=== PATIENT | female | born 1960 | race Caucasian/White ===

== ENCOUNTER 2019-06-09 20:48 | Emergency (ER) | payer BC ==
[2019-06-09] MEDS ORDERED: Ibuprofen 600 MG Tab PO ONE (21:10)
--- NOTE | 2019-06-09 21:10 | EDM.PDOC ---
ED HPI GENERAL MEDICAL PROBLEM - General Chief Complaint: Upper Extremity Injury/Pain Stated Complaint: SLIPPED ON KITCHEN FLOOR, HURT RIGHT WRIST Time Seen by Provider: 06/09/19 21:00 Source of Information: Reports: Patient History Limitations: Reports: No Limitations - History of Present Illness INITIAL COMMENTS - FREE TEXT/NARRATIVE: Patient comes to the emergency department today with complaints of right wrist injury. Patient was ambulating in her itching when she slipped and fell landing backwards with a flexed out stretched right wrist.She did not hit her head. She has no head neck or back pain. She only complains a painful right wrist. No paresthesias. She did apply a prefabricated wrist splint prior to arrival. She has not taken anything for pain. She has been drinking alcohol tonight "quite a bit". Right Wrist Pain Score (Numeric/FACES): 1 - Related Data Allergies Allergy/AdvReac Type Severity Reaction Status Date / Time No Known Allergies Allergy Verified 06/09/19 21:11 Review of Systems - Review of Systems Review Of Systems: Comprehensive ROS is negative, except as noted in HPI. ED EXAM, GENERAL - Physical Exam Exam: See Below Exam Limited By: No Limitations General Appearance: Alert, WD/WN, No Apparent Distress Peripheral Pulses: 2+: Radial (L), Radial (R) Extremities: Normal Capillary Refill. No: Normal Inspection (Lateral distal right wrist swelling pain. NO overt bony deformity. No breaks in the skin. Decreased ROM due to pain. Rest of the right UPPER extremity is unremarkable. ABle to flex and extend at the elbow and all the joints of the fingers as well. ), Normal Range of Motion (decreased right wrist ROM. ) Neurological: Alert, Oriented Psychiatric: Normal Affect Skin Exam: Warm, Dry, Intact, Normal Color ED TRAUMA EXTREMITY PROCEDURES - Splinting Right Upper Extremity Splint Site: Right wrist forearm Pre-Procedure NV Status: Normal Post-Procedure NV Status: Normal Splint Material: Fiberglass Splint Design: Other (dorsal and volar splint) Applied & Form Fitted By: Provider Provider Post-Splint Application NV Check: NV Status Normal, Good Position Complications: No Course - Vital Signs Last Recorded V/S: Last Vital Signs Temp 36.6 C 06/09/19 22:00 Pulse 88 06/09/19 22:00 Resp 18 06/09/19 22:00 BP 136/89 06/09/19 22:00 Pulse Ox 100 06/09/19 22:00 - Orders/Labs/Meds Meds: Medications Discontinued Medications Generic Name Dose Route Start Last Admin Trade Name Beatriz PRN Reason Stop Dose Admin Ibuprofen 600 mg 06/09/19 21:10 06/09/19 21:20 Motrin PO 06/09/19 21:11 600 mg ONETIME ONE Administration - Radiology Interpretation Free Text/Narrative:: x-ray initially reviewed extemporaneously by myself appears to be a intra- articular distal radius fracture not needing reduction per radiology and intra-articular fracture of the distal radius with minimal fragment displacement. Carpus is intact. Mild DJD noted throughout the hand and the wrist - Re-Assessments/Exams Free Text/Narrative Re-Assessment/Exam: 06/09/19 22:18 Ibuprofen orally. Splint ortho glass fashioned by myself. Copies of the xray available to the patient. I did review the concerns of the minimally displaced distal radius fracture that does not need any reduction. Will need closed ortho follow up to ensure the intra-articular surface does not change. Sling for comfort. She is comfortable with the plan and her questions answered. Departure - Departure Time of Disposition: 21:58 Disposition: Home, Self-Care 01 Clinical Impression: Radius distal fracture Qualifiers: Encounter type: initial encounter Fracture type: closed Fracture morphology: other intra-articular Laterality: right Qualified Code(s): S52.571A - Other intraarticular fracture of lower end of right radius, initial encounter for closed fracture - Discharge Information Instructions: Cast or Splint Care, Adult, [id number], Pain Medicine Instructions, [id number] Forms: ED Department Discharge Additional Instructions: Splint at all times. Do not get it wet. Sling for comfort. RICE therapy. Rest ice compression and elevation. Do not get the splint wet. Tylenol and or Ibuprofen as needed for pain. If pain not controlled with above. [place] 1 tablet every 6 hrs with food as needed for pain. Caution sedation. #12. Return to the ED if new or worsening symptoms. Follow up with Ortho in [place] in 1 week for recheck. Sepsis Event Note - Focused Exam Vital Signs: Vital Signs Temp Pulse Resp BP Pulse Ox 06/09/19 22:00 36.6 C 88 18 136/89 100 06/09/19 20:54 36.4 C 78 19 150/100 H 100 Date Exam was Performed: 06/09/19 Time Exam was Performed: 22:18 - Assessment/Plan Assessment:: Closed right distal radius fracture intra-articular with minimal displacement. Application of self made orthoglass splint to the right forearm. Plan: Splint at all times. Do not get it wet. Sling for comfort. RICE therapy. Rest ice compression and elevation. Do not get the splint wet. Tylenol and or Ibuprofen as needed for pain. If pain not controlled with above. [place] 1 tablet every 6 hrs with food as needed for pain. Caution sedation. #12. Return to the ED if new or worsening symptoms. Follow up with Ortho in [place] in 1 week for recheck.
== END 2019-06-09 22:07 | disposition home or self-care (01) ==
LOC: DL.ED 20:48
DX: S52.571A Other intraarticular fracture of lower end of right radius, initial encounter for closed fracture (principal); W01.0XXA Fall on same level from slipping, tripping and stumbling without subsequent striking against object, initial encounter
CPT/HCPCS: 29125; 73110-RT; 99283-25; A9270-GY